=== PATIENT | female | born 1980 | race Caucasian/White ===

== ENCOUNTER 2016-10-24 10:33 | Outpatient (CLI) ==
[2015-03-22 09:35] VITALS: BMI 24.8
[2016-10-24 11:09] LABS: BILIRUBIN,URINE Negative (NEGATIVE); KETONES,URINE Negative (NEGATIVE); LEUKOCYTE ESTERASE ,URINE 2+ (NEGATIVE); NITRITE,URINE Negative (NEGATIVE); PROTEIN,URINE Negative (NEGATIVE); URINE, BLOOD 1+ (NEGATIVE)
[2016-10-24 11:10] LABS: BASOPHILS % (AUTO) 0.5 % (0.0-3.0); HEMATOCRIT 40.4 % (37.0-47.0); HEMOGLOBIN 13.8 g/dl (12.0-16.0); IMMATURE GRANULOCYTE % (AUTO) 0.5 % (0.0-5.0); LYMPHOCYTES # (AUTO) 2.3 K/uL (0.60-3.4); LYMPHOCYTES % (AUTO) 26.9 (10.0-50.0); MEAN CORPUSCULAR HGB CONC 34.2 (31.8-35.4); MEAN CORPUSCULAR VOLUME 90.8 fl (81.0-99.0); MONOCYTES # (AUTO) 0.5 K/uL (0.4-2.0); NEUTROPHILS # (AUTO) 5.7 K/ul (2.0-6.9); NEUTROPHILS % (AUTO) 66.1; PLATELET COUNT 275 10^3/uL (140-440); RED BLOOD COUNT 4.45 10^6/ul (4.20-5.40)
[2016-10-24 11:22] LABS: ADD URINE MICROSCOPIC YES
[2016-10-24 11:23] LABS: BACTERIA,URINE 2+ (NOT PRESENT)
== END 2016-10-24 10:34 | disposition home or self-care (01) ==
LOC: LAB 10:33
PROVIDERS: ATTEND Obstetrics & Gynecology
DX: Z30.2 Encounter for sterilization (principal)
CPT/HCPCS: 36415; 81001; 85025; 87086

== ENCOUNTER 2017-11-27 22:05 | Emergency (ER) | payer OTHER ==
[2017-11-27] MEDS ORDERED: DEMEROL 50 MG/ML VIAL IVP STA (22:12)
[2017-11-27] MEDS ORDERED: ZOFRAN 4 MG/2 ML IVP STA (22:12)
[2017-11-27 22:13] VITALS: TEMP 98.4; BMI 25.9
[2017-11-27] MEDS ORDERED: SODIUM CHLORIDE 500 ML IV STA (22:44)
--- NOTE | 2017-11-27 22:51 | ED.PDOC ---
General ED Provider: Dr. DONALD CROWLEY Chief Complaint: Abdominal Pain Stated Complaint: Patient Time Seen by Physician: 22:45 Mode of Arrival: Walk-In Information Source: Patient Nursing and Triage Documentation Reviewed and Agree: Yes Reviewed sepsis parameters & appropriate labs ordered?: Yes System Inflammatory Response Syndrome: Not Applicable Sepsis Protocol: For patient's 13 years and over: Temp is 96.8 and below OR 101 and greater Pulse >90 BPM Resp >20/minute Acutely Altered Mental Status Are patient's symptoms suggestive of a new infection, such as: -Pneumonia -Skin, Soft Tissue -Endocarditis -UTI -Bone, Joint Infection -Implantable Device -Acute Abdominal Infection -Wound Infection -Meningitis -Blood Stream Catheter Infection -Unknown GI Complaint Exam - Abdominal Pain Complaint/Exam Onset: Sudden Symptoms Are: Still present Timing: Constant Initial Severity: Severe Current Severity: Severe Location of Pain: Suprapubic Character: Reports: Aching, Throbbing Aggravating: Reports: Movement Alleviating: Reports: None Associated Signs and Symptoms: Reports: Nausea. Denies: Diaphoresis, Fever, Cough, Chest pain, Dizziness, Back pain, Constipation, Blood in stool, Dysuria, Urinary frequency, Decreased urine output, Decreased appetite, Vaginal bleeding , Vaginal discharge, Vomiting, Diarrhea, Sore throat, Decreased activity AAA Risk Factors: Reports: None Cardiac Risk Factors: Reports: None Ectopic Risk Factors: Reports: None Ovarian Torsion Risk Factors: Reports: None Surgical Obstruction Risk Factors: Reports: None Related Surgical History: Reports: None Differential Diagnoses: Appendicitis, Bowel Obstruction, Constipation Review of Systems - Review Of Systems Constitutional: Reports: No symptoms Eyes: Reports: No symptoms Ears, Nose, Mouth, Throat: Reports: No symptoms Respiratory: Reports: No symptoms Cardiac: Reports: No symptoms GI: Reports: Abdominal pain : Reports: No symptoms Musculoskeletal: Reports: No symptoms Skin: Reports: No symptoms Neurological: Reports: No symptoms Endocrine: Reports: No symptoms Hematologic/Lymphatic: Reports: No symptoms All Other Systems: Reviewed and Negative Past Medical History - Past Medical History Previously Healthy: Yes Endocrine: Reports: None Cardiovascular: Reports: None Respiratory: Reports: None Hematological: Reports: None Gastrointestinal: Reports: None Genitourinary: Reports: None Neuro/Psych: Reports: None Musculoskeletal: Reports: None Cancer: Reports: None Last Menstrual Period: NOVEMBER 15 - Surgical History General Surgical History: Reports: Other (D and C 2006) - Family History Family History: Reports: Unknown - Social History Smoking Status: Current every day smoker, Heavy tobacco smoker Smoking Cessation Counseling Time: > 10 min Hx Substance Use: No Alcohol Screening: None - Immunizations Tetanus Shot up to Date: Yes Physical Exam - Physical Exam Appearance: Ill-appearing Pain Distress: Severe Eyes: VANESSA, EOMI, Conjunctiva clear ENT: Ears normal, Nose normal, Oropharynx normal Respiratory: Airway patent, Breath sounds clear, Breath sounds equal, Respirations nonlabored Cardiovascular: RRR, Pulses normal, No rub, No murmur GI/: Tender (suprapubic) Musculoskeletal: Normal strength, ROM intact, No edema, No calf tenderness Skin: Warm, Dry, Normal color Neurological: Sensation intact, Motor intact, Reflexes intact, Cranial nerves intact, Alert, Oriented Psychiatric: Affect appropriate, Mood appropriate Re-Evaluation - Re-Evaluation Time of Re-Evaluation: 01:16 (better) Status: Improved Critical Care Note - Critical Care Note Total Time (mins): 30 Course - Course Hematology/Chemistry: 11/27/17 20:24 11/27/17 20:24 Orders, Labs, Meds: Lab Review 11/27/17 11/27/17 11/27/17 20:24 20:24 22:24 WBC 13.90 H RBC 4.01 L Hgb 12.8 Hct 37.0 MCV 92.3 MCH 31.9 H MCHC 34.6 RDW Coeff of [place] 11.8 Plt Count 265 Immature Gran % (Auto) 0.5 Neut % (Auto) 73.5 Lymph % (Auto) 20.9 [place] % (Auto) 4.9 Eos % (Auto) 0.0 Baso % (Auto) 0.2 Immature Gran # (Auto) 0.1 Neut # (Auto) 10.2 H Lymph # (Auto) 2.9 [place] # (Auto) 0.7 Eos # (Auto) 0.0 Baso # (Auto) 0.0 Sodium 141 Potassium 3.4 L Chloride 105 Carbon Dioxide 23 Anion Gap 16.4 BUN 10 Creatinine 0.91 Estimated GFR (MDRD) 70.00 BUN/Creatinine Ratio 10.98 Glucose 146 H Calcium 9.6 Total Bilirubin 0.4 AST 12 L ALT 10 L Alkaline Phosphatase 68 Total Protein 7.6 Albumin 4.0 Globulin 3.6 Albumin/Globulin Ratio 1.11 Amylase 69 Lipase 13 Serum , Qual Negative Orders Category Date Time Status ED IV/MEDIPORT/POWERPORT .ONCE EMERGENCY 11/27/17 22:12 Active AMYLASE Stat LAB 11/27/17 20:24 Completed CBC W/ AUTO DIFF Stat LAB 11/27/17 20:24 Completed COMPREHENSIVE METABOLIC PANEL Stat LAB 11/27/17 20:24 Completed LIPASE Stat LAB 11/27/17 20:24 Completed SERUM Stat LAB 11/27/17 22:24 Completed URINALYSIS C & S IF INDICATED Stat LAB 11/27/17 22:12 Uncollected 0.9 % Sodium Chloride [Saline Flush] MEDS 11/27/17 22:12 Ordered 1 syr IVF PRN PRN Meperidine HCl/Pf [Demerol 50 mg/ml Vial] MEDS 11/27/17 22:12 Discontinued 50 mg IVP ONCE STA Ondansetron HCl/Pf [Zofran 4 mg/2 ml] MEDS 11/27/17 22:12 Discontinued 4 mg IVP ONCE STA Sodium Chloride 0.9% [Sodium Chloride] 500 ml MEDS 11/27/17 22:[address] ABDOMEN/PELVIS WO CONTRAST Stat RADS 11/27/17 22:12 Completed Medications Generic Name Dose Route Start Last Admin Trade Name Freq PRN Reason Stop Dose Admin Sodium Chloride 1 syr 11/27/17 22:12 Saline Flush IVF PRN PRN To flush IV Discontinued Medications Generic Name Dose Route Start Last Admin Trade Name Freq PRN Reason Stop Dose Admin Sodium Chloride 500 mls @ 500 mls/hr 11/27/17 22:44 11/27/17 22:58 Sodium Chloride IV 11/27/17 23:43 500 mls/hr BOLUS STA Administration Meperidine HCl 50 mg 11/27/17 22:12 11/27/17 22:28 Demerol 50 Mg/Ml Vial IVP 11/27/17 22:13 50 mg ONCE STA Administration Ondansetron HCl 4 mg 11/27/17 22:12 11/27/17 22:28 Zofran 4 Mg/2 Ml IVP 11/27/17 22:13 4 mg ONCE STA Administration Vital Signs: Temp Pulse Resp BP Pulse Ox 11/27/17 23:30 108/68 11/27/17 22:59 84 16 104/66 11/27/17 22:06 98.4 F 74 16 101/71 100 Departure - Departure Time of Disposition: 01:16 Disposition: HOME SELF-CARE Discharge Problem: Abdominal pain Instructions: Abdominal Pain (ED) Condition: Stable Pt referred to PMD for follow-up: Yes IPMP verified?: No Additional Instructions: INCREASE HYDRATION TYLENOL PRN IF NOT BETTER NEEDS FURTHER EVALUATION Allergies/Adverse Reactions: Allergies No Known Allergies Allergy (Unverified 11/27/17 22:10) Home Medications: Ambulatory Orders Melatonin 10 mg PO DAILY 11/27/17 Disposition Discussed With: Patient, Family
[2017-11-27 23:59] VITALS: BP 108/68
--- NOTE | 2017-11-28 00:32 | CT ---
EXAM: CT of the abdomen and pelvis without contrast. HISTORY: Suprapubic pain. PROCEDURE: Contiguous axial CT images of the abdomen and pelvis without contrast with coronal and sa gittal reformats. FINDINGS: The liver, gallbladder, pancreas, spleen, adrenal glands and left kidney are normal in appe arance. There are nonobstructive calcifications in the right kidney measuring up to 4 mm. No hydron ephrosis. The ureters are incompletely visualized. The abdominal aorta is within normal limits in di ameter. The visualized loops of bowel and appendix are normal in appearance. No free fluid or free a ir in the abdomen or pelvis. The bladder is adequately filled with no abnormality identified. The ut erus is unremarkable. There are surgical clips in the bilateral adnexa. The bones and soft tissues a re unremarkable. Impression: Nonobstructive right nephrolithiasis as described. The ureters are incompletely visuali zed and a non-obstructing ureterolith cannot be excluded. Operative changes as described.
[2017-11-28] MEDS ORDERED: SODIUM CHLORIDE 1,000 ML IV STA (01:15)
== END 2017-11-28 01:55 | disposition home or self-care (01) ==
LOC: ED 22:05
DX: R10.30 Lower abdominal pain, unspecified (principal); F17.210 Nicotine dependence, cigarettes, uncomplicated
CPT/HCPCS: 36415; 80053; 82150; 83690; 84703; 85025; 96361; 96374; 96375; 99283